=== PATIENT | male | born 1990 | race Caucasian/White ===

== ENCOUNTER 2016-07-23 22:30 | Emergency (ER) | payer MEDICAID ==
[~2016-07-23] VITALS: Ht 182.9 cm; Wt 81.6 kg
[2016-07-23 23:14] VITALS: BP 135/74
--- NOTE | 2016-07-24 03:02 | NUR ---
Dr. Rodriguez evaluating patient at bedside.
--- NOTE | 2016-07-24 03:02 | NUR ---
PT TAKEN TO OF
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
[2016-07-24] MEDS ORDERED: IBUPROFEN 600 MG TAB PO ONE (03:15)
[2016-07-24] MEDS ORDERED: CYCLOBENZAPRINE 10 MG TAB PO ONE (03:15)
[2016-07-24 04:28] VITALS: BP 129/75
--- NOTE | 2016-07-24 04:28 | NUR ---
Patient discharged with v/s stable. Written and verbal after care instructions given and explained. Patient alert, oriented and verbalized understanding of instructions. Ambulatory with steady gait. All questions addressed prior to discharge. ID band removed. Patient advised to follow up with PMD. Rx of IBUPROFEN 600MG TAB, 1 TAB ORALLY, 3 TIMES A DAY BY MOUTH NEEDED, FLEXERIL 5MG TAB, 1 TAB ORALLY 3 TIMES A DAY NEEDED given. Patient educated on indication of medication including possible reaction and side effects. Opportunity to ask questions provided and answered.
== END 2016-07-24 04:28 | disposition home or self-care (01) ==
LOC: MED 22:30
DX: S13.9XXA Sprain of joints and ligaments of unspecified parts of neck, initial encounter (principal); S33.5XXA Sprain of ligaments of lumbar spine, initial encounter; V89.2XXA Person injured in unspecified motor-vehicle accident, traffic, initial encounter; Y93.89 Activity, other specified; Y92.89 Other specified places as the place of occurrence of the external cause; Y99.8 Other external cause status

== ENCOUNTER 2018-07-16 08:05 | Emergency (ER) | payer MEDICAID ==
[~2018-07-16] VITALS: Ht 182.9 cm; Wt 90.7 kg
--- NOTE | 2018-07-16 08:16 | NUR ---
PATIENT PRESENTS TO ED WITH C/O N/V AND DIARRHEA . PT STATES HIS SYMPTOMS STARTED YESTERDAY. PT REPORTS 6 EPISODES OF VOMITING AND DIARRHEA . SKIN IS PINK/WARM/DRY; AAOX4 WITH EVEN AND STEADY GAIT; LUNGS CLEAR BL; HR EVEN AND REGULAR; PT DENIES ANY FEVER, CP, SOB, OR COUGH AT THIS TIME; PATIENT STATES PAIN OF 5/10 AT THIS TIME; VSS; PATIENT POSITIONED FOR COMFORT; HOB ELEVATED; BEDRAILS UP X2; BED DOWN. ER MD MADE AWARE OF PT STATUS.
--- NOTE | 2018-07-16 08:16 | NUR ---
PT TO ER BED 8
[2018-07-16 08:19] VITALS: BP 132/68
[2018-07-16] MEDS ORDERED: ONDANSETRON 4 MG ODT PO ONE (09:00)
[2018-07-16] MEDS ORDERED: DIPHENOXYLATE /ATROPINE 2.5 MG TAB PO ONE (09:00)
[2018-07-16 09:37] VITALS: BP 127/76
--- NOTE | 2018-07-16 09:38 | NUR ---
Patient discharged with v/s stable. Written and verbal after care instructions given and explained. Patient alert, oriented and verbalized understanding of instructions. Ambulatory with steady gait. All questions addressed prior to discharge. ID band removed. Patient advised to follow up with PMD. Rx of ZOFRAN AND LOMOTIL given. Patient educated on indication of medication including possible reaction and side effects. Opportunity to ask questions provided and answered.
== END 2018-07-16 09:38 | disposition home or self-care (01) ==
LOC: MED 08:05
DX: R11.2 Nausea with vomiting, unspecified (principal); R19.7 Diarrhea, unspecified; R10.9 Unspecified abdominal pain; Z98.890 Other specified postprocedural states
CPT/HCPCS: 99283; Q0162

== ENCOUNTER 2019-01-28 16:36 | Emergency (ER) | payer MEDICAID ==
[~2019-01-28] VITALS: Ht 185.4 cm; Wt 100.7 kg
[2019-01-28 16:47] VITALS: BP 131/76
--- NOTE | 2019-01-28 16:47 | NUR ---
PT CALLED. PT IN RESTROOM.
--- NOTE | 2019-01-28 16:55 | NUR ---
PT TO LOBBY
[2019-01-28] MEDS ORDERED: IBUPROFEN 400 MG TAB PO ONE (17:05)
--- NOTE | 2019-01-28 17:31 | NUR ---
PATIENT AMBULATED TO BED 3.
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
[2019-01-28 19:07] VITALS: BP 131/76
--- NOTE | 2019-01-28 19:08 | NUR ---
Patient discharged with v/s stable. Written and verbal after care instructions given and explained. Patient alert, oriented and verbalized understanding of instructions. Ambulatory with steady gait. All questions addressed prior to discharge. ID band removed. Patient advised to follow up with PMD. Rx of NORCO 5MG-325MG; NAPROSYN 375MG given. Patient educated on indication of medication including possible reaction and side effects. Opportunity to ask questions provided and answered.
== END 2019-01-28 19:08 | disposition home or self-care (01) ==
LOC: MED 16:36
DX: S39.012A Strain of muscle, fascia and tendon of lower back, initial encounter (principal); F17.210 Nicotine dependence, cigarettes, uncomplicated; Z98.890 Other specified postprocedural states; W19.XXXA Unspecified fall, initial encounter; Y93.89 Activity, other specified; Y92.832 Beach as the place of occurrence of the external cause; Y99.8 Other external cause status
CPT/HCPCS: 72080; 99283

== ENCOUNTER 2021-08-22 09:11 | Emergency (ER) | payer MEDICAID, OTHER ==
[~2021-08-22] VITALS: Ht 185.4 cm; Wt 110.0 kg
[2021-08-22 09:15] VITALS: BP 113/71
--- NOTE | 2021-08-22 09:34 | NUR ---
PATIENT CONNECTED TO BEDSIDE MONITOR, SAFETY MEASURES PUT INTO PLACE. WILL CONTINUE TO MONITOR.
--- NOTE | 2021-08-22 09:40 | NUR ---
30/M BIB SELF. PATIENT PRESENTS TO ED WITH C/O CHEST PAIN; 01/01 SINCE SUNDAY. PATIENT STATES PAIN RADIATES FROM R SIDE OF CHEST TO R SHOULDER. PATIENT REPORTS INCREASE IN ANXIETY AND STRESS AT HOME, SOB W/ DEEP BREATHS. DENIES INJURIES/ TRAUMA, N/V/D, DYSURIA, HEMATURIA, MEDS FOR PAIN RELIEF, RECENT EXPOSURE TO COVID. PMH: DENIES MEDS: DENIES ALLERGIES: POSSIBLY SEASONAL
--- NOTE | 2021-08-22 09:49 | NUR ---
30/M BIB SELF WITH C/O 7/10 PRESSURE LIKE CHEST PAIN SINCE SUNDAY. STATES PAIN BEGAN ON RIGHT SIDE OF CHEST AND RADIATES TO RIGHT SHOULDER, DENIES RECENT INJURY OR TRAUMA, DENIES TAKING ANYTHING FOR PAIN. DENIES COUGH, FEVER, CHILLS.
--- NOTE | 2021-08-22 10:27 | NUR ---
Nithya wright in [facility] - 08/22/21 at [email or web address] GOMES EVALUATING PATIENT AT BEDSIDE.
--- NOTE | 2021-08-22 10:27 | NUR ---
DR GOMES AT BEDSIDE EVALUATING PT
[2021-08-22] MEDS ORDERED: KETOROLAC 30 MG/ML VIAL IM ONE (10:35)
[2021-08-22] MEDS ORDERED: diazePAM 5 MG TAB PO ONE (10:35)
--- NOTE | 2021-08-22 10:40 | NUR ---
PATIENT STATES PAIN AND ANXIETY HAVE NOT BEEN RELIEVED, MEDICATED PER ORDERS. SAFETY MEASURES PUT INTO PLACE. WILL CONTINUE TO MONITOR.
--- NOTE | 2021-08-22 10:48 | NUR ---
RAD AT PATIENT BEDSIDE.
--- NOTE | 2021-08-22 11:11 | NUR ---
RE EVALUATED PATIENT'S PAIN LEVEL, PATIENT STATES PAIN IS 4/10. SOME RELIEF NOTED.
[2021-08-22] MEDS ORDERED: NAPR-54 PO (11:39)
[2021-08-22] MEDS ORDERED: DIAZ5TAB8 PO (11:39)
[2021-08-22 12:09] VITALS: BP 114/64
--- NOTE | 2021-08-22 12:09 | NUR ---
Patient discharged with v/s stable. Written and verbal after care instructions ABOUT CHEST WALL PAIN AND STRESS given and explained. Patient alert, oriented and verbalized understanding of instructions. Ambulatory with steady gait. All questions addressed prior to discharge. ID band removed. Patient advised to follow up with PMD. Rx of DIAZEPAM AND NAPROXEN given.
--- NOTE | 2021-08-22 12:10 | NUR ---
The patient's care was reviewed and supervised by Rox Sinha RN.
== END 2021-08-22 12:09 | disposition home or self-care (01) ==
LOC: MED 09:11
DX: R07.89 Other chest pain (principal); F17.210 Nicotine dependence, cigarettes, uncomplicated
CPT/HCPCS: 71045; 93005; 96372; 99285; J1885; Q0092

== ENCOUNTER 2021-09-18 19:32 | Emergency (ER) | payer OTHER ==
[~2021-09-18] VITALS: Ht 185.4 cm; Wt 107.6 kg
[~2021-09-18 19:32] MED LIST: DIAZ5TAB8 PO; NAPR-54 PO
[2021-09-18 20:34] VITALS: BP 116/83
--- NOTE | 2021-09-18 20:40 | NUR ---
PT SENT TO LOBBY.
--- NOTE | 2021-09-18 22:15 | NUR ---
PT TAKEN TO BED 02
--- NOTE | 2021-09-18 22:20 | NUR ---
ER ASSESSING PT
[2021-09-18] MEDS ORDERED: KETOROLAC 30 MG/ML VIAL IM ONE (22:25)
[2021-09-18] MEDS ORDERED: CYCL-711 PO (22:26)
[2021-09-18] MEDS ORDERED: NAPR-54 PO (22:26)
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
[2021-09-18 23:53] VITALS: BP 116/83
--- NOTE | 2021-09-18 23:54 | NUR ---
Patient discharged with v/s stable. Written and verbal after care instructions given and explained. Patient alert, oriented and verbalized understanding of instructions. Ambulatory with steady gait. All questions addressed prior to discharge. ID band removed. Patient advised to follow up with PMD. Rx of CYCLOBENZAPRINE AND NAPROXEN given. Patient educated on indication of medication including possible reaction and side effects. Opportunity to ask questions provided and answered. VSS, A/OX4, AMBULATORY, UNLABORED BREATHING, AND CALM DEMEANOR.
== END 2021-09-18 23:52 | disposition home or self-care (01) ==
LOC: MED 19:32
DX: M25.511 Pain in right shoulder (principal); R20.0 Anesthesia of skin; Z98.890 Other specified postprocedural states; Z79.899 Other long term (current) drug therapy; Z79.1 Long term (current) use of non-steroidal anti-inflammatories (NSAID)
CPT/HCPCS: 73030; 73590; 96372; 99284; J1885

== ENCOUNTER 2022-05-26 15:10 | Emergency (ER) | payer OTHER ==
[~2022-05-26] VITALS: Ht 185.4 cm; Wt 107.0 kg
[~2022-05-26 15:10] MED LIST changes: +CYCL-711 PO
[2022-05-26 15:43] VITALS: BP 125/76
--- NOTE | 2022-05-26 15:46 | NUR ---
Pt to lobby
[2022-05-26] MEDS ORDERED: KETOROLAC 30 MG/ML VIAL IM ONE (17:05)
[2022-05-26] MEDS ORDERED: CYCL-711 PO (17:13)
[2022-05-26] MEDS ORDERED: IBUP-2213 PO (17:13)
--- NOTE | 2022-05-26 17:45 | NUR ---
Patient discharged with v/s stable. Written and verbal after care instructions given and explained for Lumbar contusion. Patient alert, oriented and verbalized understanding of instructions. Ambulatory with steady gait. All questions addressed prior to discharge. ID band removed. Patient advised to follow up with PMD. Rx of Flexeril, Ibuprofen given. Patient educated on indication of medication including possible reaction and side effects. Opportunity to ask questions provided and answered. Off work note given to pt.
[2022-05-27 01:35] LABS: APPEARANCE,URINE CLEAR (CLEAR); BILIRUBIN,URINE NEGATIVE (NEGATIVE); BLOOD, URINE NEGATIVE (NEGATIVE); COLOR,URINE YELLOW (YELLOW); LEUKOCYTE ESTERASE ,URINE NEGATIVE (NEGATIVE); NITRITE, URINE NEGATIVE (NEGATIVE); UGLUCOSE NEGATIVE (NEGATIVE)
[2022-05-27 01:49] LABS: RBC,URINE 0-5 /HPF (0-5); WBC,URINE 0-5 /HPF (0-5)
== END 2022-05-26 17:45 | disposition home or self-care (01) ==
LOC: MED 15:10
DX: S30.0XXA Contusion of lower back and pelvis, initial encounter (principal); X58.XXXA Exposure to other specified factors, initial encounter; Y93.89 Activity, other specified; Y92.89 Other specified places as the place of occurrence of the external cause; Y99.8 Other external cause status
CPT/HCPCS: 81001; 96372; 99283; J1885

== ENCOUNTER 2022-08-01 19:27 | Emergency (ER) | payer OTHER ==
[~2022-08-01] VITALS: Ht 185.4 cm; Wt 99.8 kg
[~2022-08-01 19:27] MED LIST changes: +IBUP-2213 PO
[2022-08-01 19:41] VITALS: BP 119/72
--- NOTE | 2022-08-01 20:36 | NUR ---
Patient taken to bed 7.
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
[2022-08-01] MEDS ORDERED: predniSONE 20 MG TAB PO ONE (21:00)
[2022-08-01] MEDS ORDERED: diphenhydrAMINE 50 MG/ML VIAL IM ONE (21:00)
[2022-08-01] MEDS ORDERED: LIDOCAINE 1% 500 MG/ 50 ML VIAL INJ ONE (21:00)
[2022-08-01] MEDS ORDERED: LIDOCAINE MPF 1% 5 ML ONE (21:07)
--- NOTE | 2022-08-01 21:14 | NUR ---
DR FERGUSON AT BEDSIDE
[2022-08-01] MEDS ORDERED: DIPH25TA53 PO (21:38)
[2022-08-01] MEDS ORDERED: PRED20TA5 PO (21:38)
[2022-08-01 21:45] VITALS: BP 120/79
--- NOTE | 2022-08-01 21:45 | NUR ---
Patient discharged with v/s stable. Written and verbal after care instructions given and explained. Patient alert, oriented and verbalized understanding of instructions. Ambulatory with steady gait. All questions addressed prior to discharge. ID band removed. Patient advised to follow up with PMD. Rx of BENADRYL DELTASONE given. Patient educated on indication of medication including possible reaction and side effects. Opportunity to ask questions provided and answered.
== END 2022-08-01 21:45 | disposition home or self-care (01) ==
LOC: MED 19:27
DX: T78.49XA Other allergy, initial encounter (principal); L50.9 Urticaria, unspecified; L02.214 Cutaneous abscess of groin; Z79.899 Other long term (current) drug therapy; Z79.1 Long term (current) use of non-steroidal anti-inflammatories (NSAID); X58.XXXA Exposure to other specified factors, initial encounter
CPT/HCPCS: 10061; 96372; 99284; J1200; J2001; J7512